=== PATIENT | female | born 1960 | race Caucasian/White ===

== ENCOUNTER 2018-06-12 15:09 | Emergency (ER) | payer MEDICARE, BC ==
[~2018-06-12] VITALS: Ht 165.1 cm; Wt 58.0 kg
[2018-06-12 15:23] VITALS: BP 142/79
[2018-06-12] MEDS ORDERED: triamcinolone acetonide 40mg/ml inj IM ONE (15:50)
[2018-06-12] MEDS ORDERED: triamcinolone acetonide 0.5% cream 15gm TP STA (15:50)
[2018-06-12] MEDS ORDERED: diphenhydrAMINE 50 mg/ml inj IM ONE (15:50)
[2018-06-12] MEDS ORDERED: TRIA15CR61 TP (16:04)
[2018-06-12] MEDS ORDERED: METH4TAB81 PO (16:04)
== END 2018-06-12 16:32 | disposition home or self-care (01) ==
LOC: ER 15:09
DX: T63.441A Toxic effect of venom of bees, accidental (unintentional), initial encounter (principal); Z86.73 Personal history of transient ischemic attack (TIA), and cerebral infarction without residual deficits; Z79.899 Other long term (current) drug therapy; Y92.9 Unspecified place or not applicable
CPT/HCPCS: 96372; 99284; J1200; J3301

== ENCOUNTER 2019-02-28 21:23 | Emergency (ER) | payer MEDICARE, BC ==
[~2019-02-28] VITALS: Ht 165.1 cm; Wt 56.0 kg
[~2019-02-28 21:23] MED LIST: METH4TAB81 PO
[2019-02-28] MEDS ORDERED: ketorolac trometh inj. 60 MG/2 ML VIAL IM ONE (22:10)
[2019-02-28 22:39] VITALS: BP 138/96
== END 2019-02-28 22:42 | disposition home or self-care (01) ==
LOC: ER 21:23
DX: G62.9 Polyneuropathy, unspecified (principal); C44.91 Basal cell carcinoma of skin, unspecified; Z79.899 Other long term (current) drug therapy; Z86.73 Personal history of transient ischemic attack (TIA), and cerebral infarction without residual deficits
CPT/HCPCS: 93005; 96372; 99283; J1885

== ENCOUNTER 2024-08-12 15:57 | Emergency (ER) | payer MEDICARE, BC ==
[~2024-08-12] VITALS: Ht 165.1 cm; Wt 57.2 kg
[2024-08-12 16:10] VITALS: TEMP 98.1
[2024-08-12] MEDS: LIDOcaine 2% Viscous 15ml cup MM PRN (17:35)
[2024-08-12] MEDS: mag hydrox/Alum hydrox/simeth 30ml oral suspension PO ONE (17:35)
[2024-08-12 19:01] LABS: ALANINE AMINOTRANSFERASE 62 U/L (12-78); ALBUMIN 4.2 G/DL (3.4-5.0); ALBUMIN/GLOBULIN RATIO 1.1 (1.1-1.5); ALKALINE PHOSPHATASE 80 IU/L (46-116); ANION GAP 6 (8-16); ASPARTATE AMINO TRANSFERASE 54 U/L (10-37); BILIRUBIN,TOTAL 0.6 MG/DL (0.1-1.0); BLOOD UREA NITROGEN 4 MG/DL (7-18); BUN/CREATININE RATIO 6.7 (10.0-20.0); CALCIUM 10.1 MG/DL (8.5-10.1); CHLORIDE 95 MMOL/L (99-107); GLUCOSE 110 MG/DL (70-104); POTASSIUM 4.1 MMOL/L (3.5-5.1); SODIUM 132 MMOL/L (135-145); TOTAL CARBON DIOXIDE 31.4 MMOL/L (24-32); TOTAL PROTEIN 7.9 G/DL (6.4-8.2); eCRCL 86 ML/MIN; eGFR > 90 ML/MIN
[2024-08-12 19:06] LABS: BASOPHILS % (AUTO) 0.7 % (0-1); EOSINOPHILS % (AUTO) 0.6 % (0-6); HEMATOCRIT 39.7 % (35.0-45.0); HEMOGLOBIN 13.5 g/dl (12.0-16.0); LYMPHOCYTES # (AUTO) 1.3 X10'3 (1.1-4.8); LYMPHOCYTES % (AUTO) 18.8 % (21-51); MEAN CORPUSCULAR HEMOGLOBIN 31.4 PG (27.0-31.0); MEAN CORPUSCULAR HGB CONC 33.9 g/dL (33.0-36.5); MEAN CORPUSCULAR VOLUME 92.7 FL (78-98); MEAN PLATELET VOLUME 8.6 FL (7.4-10.4); MONOCYTES # (AUTO) 0.6 X10'3 (0-0.9); MONOCYTES % (AUTO) 8.8 % (2-12); NEUTROPHILS % (AUTO) 71.1 % (42-75); PLATELET COUNT 394 X10'3 (140-440); RED BLOOD COUNT 4.29 X10'6 (4.20-5.60); RED CELL DISTRIBUTION WIDTH 12.2 % (11.5-14.5); WHITE BLOOD COUNT 7.1 X10'3 (4.5-11.0)
[2024-08-12 19:09] LABS: PRO BRAIN NATRIURETIC PEPTIDE 81 PG/ML (0-125)
[2024-08-12] MEDS ORDERED: OMEP40CA21 PO (19:20)
[2024-08-12 19:58] VITALS: BP 128/71; PULSE 63; RESP 18; O2SAT 97
== END 2024-08-12 20:01 | disposition home or self-care (01) ==
LOC: ER 15:57
DX: K21.9 Gastro-esophageal reflux disease without esophagitis (principal); K30 Functional dyspepsia; R05.9 Cough, unspecified; Z86.73 Personal history of transient ischemic attack (TIA), and cerebral infarction without residual deficits
CPT/HCPCS: 36415; 71045; 80053; 83880; 84484; 85025; 93005; 99285